=== PATIENT | female | born 1935 | race Caucasian/White ===

== ENCOUNTER 2019-01-10 11:06 | Emergency (ER) | payer MEDICARE, OTHER ==
[2019-01-10 11:37] VITALS: BP 154/66
--- NOTE | 2019-01-10 12:03 | ED ---
Back Pain - HPI Summary HPI Summary: 83 yr old female with low back pain, left sided, that radiates down the left buttock and lateral thigh. Her pain is 6/10, and worsened after a long trip yesterday. No bowel or bladder incontinence. No weakness or numbness. the patient reports that she just arrived from [place] yesterday by plane to visit family here. She states that she walked a lot in airports and also up stairs yesterday. 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 She was given one dose of steroids, and also put on naproxen and also flexeril last week. She has is asking for steroids at this point and already has an appointment with tire specialist in [place] when she returns. - History of Current Complaint Chief Complaint: UCBackPain Stated Complaint: BACK PAIN, LT LEG PAIN Time Seen by Provider: 01/10/19 11:43 Pain Intensity: 10 - Allergies/Home Medications Allergies/Adverse Reactions: Allergies Allergy/AdvReac Type Severity Reaction Status Date / Time amoxicillin Allergy Diarrhea Verified 01/10/19 11:39 bupropion [From Wellbutrin] Allergy Rash Verified 01/10/19 11:39 ciprofloxacin [From Cipro] Allergy Joint Pain Verified 01/10/19 11:39 morphine Allergy Unknown Verified 01/10/19 11:38 Reaction Details Home Medications: Home Medications Calcium Carbonate [Tums] 400 mg PO DAILY 01/10/19 [History Confirmed 01/10/19] Losartan/Hydrochlorothiazide [Losartan Potassium/Hydroc 50-12.5 mg] 1 tab PO DAILY 01/10/19 [History Confirmed 01/10/19] Multivitamin [Multiple Vitamins] 1 tab PO DAILY 01/10/19 [History Confirmed ] Ranitidine HCl (Nf) [Zantac] 75 mg PO DAILY 01/10/19 [History Confirmed 01/10/19 ] PMH/Surg Hx/FS Hx/Imm Hx Cardiovascular History: Reports: Hx Hypertension - Cancer History Cancer Type, Location and Year: Breast CA, Bladder CA - Surgical History Surgery Procedure, Year, and Place: L masectomy Infectious Disease History: No Infectious Disease History: Denies: Traveled Outside the [place] in Last 30 Days - Family History Known Family History: Positive: None - Social History Occupation: Retired Lives: With Family Alcohol Use: None Substance Use Type: Reports: None Smoking Status (MU): Never Smoked Tobacco Review of Systems Constitutional: Negative Positive: Other - back pain Negative: Weakness, Paresthesia, Numbness All Other Systems Reviewed And Are Negative: Yes Physical Exam Triage Information Reviewed: Yes Vital Signs On Initial Exam: Initial Vitals Temp Pulse Resp BP Pulse Ox 97 F 87 16 154/66 100 01/10/19 11:30 01/10/19 11:30 01/10/19 11:30 01/10/19 11:30 01/10/19 11:30 Vital Signs Reviewed: Yes Appearance: Positive: Well-Appearing, No Pain Distress Skin: Positive: Warm, Skin Color Reflects Adequate Perfusion Head/Face: Positive: Normal Head/Face Inspection Eyes: Positive: EOMI ENT: Positive: Normal ENT inspection Neck: Positive: Nontender Respiratory/Lung Sounds: Positive: Clear to Auscultation, Breath Sounds Present Cardiovascular: Positive: RRR. Negative: Murmur Abdomen Description: Negative: Distended Musculoskeletal: Positive: Strength/ROM Intact, Other - CTLS spine non tender to palpation. Neurological: Positive: Sensory/Motor Intact, Alert, Oriented to Person Place, Time, CN Intact II-III, Speech Normal Psychiatric: Positive: Normal Diagnostics - Vital Signs Vital Signs Temp Pulse Resp BP Pulse Ox 01/10/19 11:30 97 F 87 16 154/66 100 - Laboratory Lab Statement: Any lab studies that have been ordered have been reviewed, and results considered in the medical decision making process. Back Pain Course/Dx - Course Course Of Treatment: 83 yr old with sciatica. She will keep her appointment with tire specialist she already has. Medrol dose damian ordered for her. FU with PMD for BP. - Diagnoses Provider Diagnoses: Sciatica of left side, Hypertension Discharge - Sign-Out/Discharge Documenting (check all that apply): Patient Departure All imaging exams completed and their final reports reviewed: No Studies - Discharge Plan Condition: Good Disposition: HOME Prescriptions: methylPREDNISolone [Medrol Dosepak 4 MG*] 4 mg PO .SEE DAMIAN INSTRUCTION #1 damian Patient Education Materials: Lumbar Radiculopathy (ED), Sciatica (ED), Hypertension (ED) Referrals: No Primary Care Phys,NOPCP [Primary Care Provider] - [facility] [Outside] - 2 Days Additional Instructions: Be sure to follow up with your primary care doctor for your blood pressure, and also the back specialist in [place] when you get home. Any worse symptoms be sure to go to the ER. - Billing Disposition and Condition Condition: GOOD Disposition: Home
== END 2019-01-10 12:07 | disposition home or self-care (01) ==
LOC: UCCORT 11:06
DX: M54.30 Sciatica, unspecified side (principal); I10 Essential (primary) hypertension; Z85.3 Personal history of malignant neoplasm of breast; Z85.51 Personal history of malignant neoplasm of bladder; Z90.12 Acquired absence of left breast and nipple
CPT/HCPCS: 99202; G0463